=== PATIENT | female | born 1950 | race Caucasian/White ===

== ENCOUNTER 2017-07-06 10:36 | Day surgery (SDC) | payer MEDICARE ==
[2017-07-06] MEDS ORDERED: LIDOCAINE 2% MDV (20MG/ML) 20ML VIAL IV ONE (16:05)
[2017-07-06] MEDS ORDERED: PROPOFOL 10 MG/ML VIAL IV ONE (16:05)
--- NOTE | 2017-07-12 10:20 | Operative Note ---
DATE OF SURGERY: 07/06/2017 REFERRING PROVIDER: Becky Veliz MD PREOPERATIVE DIAGNOSIS: Personal history of polyps. POSTOPERATIVE DIAGNOSES: 1. Angulated sigmoid colon. 2. Ascending colon polyp. OPERATION: COLONOSCOPY with cold snare polypectomy. Preparation Quality: Good to excellent. Estimated Blood Loss: Minimal. Samples Obtained: Ascending colon polyp. Complications: None apparent. PROCEDURE: After informed consent was obtained, the patient was placed in the left lateral decubitus position in the endoscopy suite, sedated and monitored by the Department of Anesthesia. Digital rectal exam was unremarkable. A well-lubricated CF-160 colonoscope was inserted into the rectum and advanced to the sigmoid colon. There was sharp angulation and restricted mobility. Despite attempts to maneuver the adult colonoscope through this region, it was unsuccessful. As a result, the adult colonoscope was removed and a PCF-180 pediatric colonoscope was inserted into the rectum and through the sigmoid colon. There was some difficulty due to the angulation and restriction of the sigmoid colon. Nonetheless, the scope was advanced to the cecum. The preparation quality was good to excellent. The cecum was unremarkable, as was the ileocecal valve and appendiceal orifice. The ascending colon revealed a 4-5 mm sessile polyp removed with a cold snare with minimal bleeding noted. The specimen was retrieved without incident. The remainder of the ascending colon, transverse colon, descending colon, sigmoid colon, and rectum were unremarkable. J-turn views of the anorectum were unremarkable. The endoscope was straightened, the rectal ampulla deflated and the endoscope was removed. RECOMMENDATIONS: Patient should resume her medications and diet. She will likely require repeat exam in 5 years based on tissue histology. As always, thank you for allowing me to participate in the health care of your patients. CC: Becky Veliz MD [facility]
== END 2017-07-06 13:33 | disposition home or self-care (01) ==
LOC: HOP 10:36
PROVIDERS: ATTEND Internal Medicine Gastroenterology
DX: Z12.11 Encounter for screening for malignant neoplasm of colon (principal); D12.2 Benign neoplasm of ascending colon; Z86.010 Personal history of colon polyps; E78.00 Pure hypercholesterolemia, unspecified; E03.9 Hypothyroidism, unspecified; D86.9 Sarcoidosis, unspecified
CPT/HCPCS: 00810; G0105

== ENCOUNTER 2017-09-18 16:06 | Emergency (ER) | payer MEDICARE ==
[2017-09-18] MEDS ORDERED: HYDROMORPHONE HCL 1MG/ML **SYRINGE IVP ONE ×2 (17:04→18:51)
[2017-09-18] MEDS ORDERED: ONDANSETRON HCL IV 4 MG/2 ML VIAL IVP ONE (17:04)
[2017-09-18 17:32] LABS: BASO % 0.2 % (0-6); EOS % 2.1 % (0-6); GRAN % 69.8 % (47-80); HEMATOCRIT 41.2 % (35.0-47.0); HEMOGLOBIN 13.9 gm/dl (11.6-16.0); LYMPH % 17.1 % (16-45); MEAN CELL VOLUME 86.6 fl (81-97); MEAN CORPUSCULAR HEMOGLOBIN 29.2 pg (27-33); MEAN CORPUSCULAR HGB CONC 33.7 g/dl (32-36); MONO % 10.8 % (0-9); PLATELET COUNT 284 K/uL (130-400); RED BLOOD COUNT 4.76 M/uL (3.80-5.40); RED CELL DISTRIBUTION WIDTH 13.3 % (11.5-14.5); WHITE BLOOD COUNT W/O DIFF 6.2 K/uL (4.2-12.2)
[2017-09-18 17:42] LABS: BLOOD UREA NITROGEN 30 mg/dL (8-23); CREATININE 0.8 mg/dL (0.5-0.9); EST GLOMERULAR FILTRATION RATE > 60 mL/min; GLUCOSE,RANDOM 103 mg/dL (74-109)
--- NOTE | 2017-09-18 17:52 | Emergency Department Record ---
History of Present Illness - General Chief Complaint: Fall Injury Stated Complaint: FALL Time Seen by Provider: 09/18/17 17:03 Source: Patient Mode of Arrival: Wheelchair Limitations: No limitations - History of Present Illness Initial Comments: pt fell off a chair and landed twisted on her side. she now has significant pain in her l flank Complaint: Fall Onset/Timin -: Hour(s) Fall From: Chair When Fall Occurred: 1-3 hours [employer] Fall Witnessed: No Place Fall Occurred: Home Loss of Consciousness: None Prolonged Down Time?: No Symptoms Prior to Fall: None Location: Back Severity: Moderate Severity scale (1-10): 8 Quality: Sharp Associated Symptoms: Denies - [place] Coma Scale Eye Response: (4) Open spontaneously Motor Response: (6) Obeys commands Verbal Response: (5) Oriented Hob[place] Total: 15 - Related Data Home Medications Medication Instructions Recorded Confirmed Last Taken B2/Vits A,C,E/Lut/Zeaxanth/Min 1 each PO DAILY 09/18/17 09/18/17 09/18/17 [Icaps Tablet] Budesonide/Formoterol Fumarate 6.9 gm IH Q12H 09/18/17 09/18/17 09/18/17 [Symbicort 80-4.5 Mcg Inhaler] Gabapentin [Neurontin] 100 mg PO BID 09/18/17 09/18/17 09/18/17 Previous Rx's Medication Instructions Recorded Hydrocodone/Acetaminophen [[place] 0.5 - 1 tab PO TID PRN #10 tab 09/18/17 5mg/325mg] Allergies Allergy/AdvReac Type Severity Reaction Status Date / Time No Known Drug Allergies Allergy Verified 09/18/17 16:08 Travel Screening - Travel/Exposure Within Last 30 Days Have you traveled within the last 30 days?: No - Travel/Exposure Within Last Year Have you traveled outside the [place] in the last year?: No - Additonal Travel Details Have you been exposed to anyone with a communicable illness?: No Review of Systems Reviewed: No additional complaints except as noted below Constitutional: Reports: As per HPI. Denies: Chills, Fever, Malaise, Night sweats, Weakness, Weight change Eyes: Reports: As per HPI. Denies: Eye discharge, Eye pain, Photophobia, Vision change ENT: Reports: As per HPI. Denies: Congestion, Dental pain, Ear pain, Epistaxis , Hearing loss, Throat pain Respiratory: Reports: As per HPI. Denies: Cough, Dyspnea, Hemoptysis, Stridor, Wheezes Cardiovascular: Reports: As per HPI. Denies: Arrhythmia, Chest pain, Dyspnea on exertion, Edema, Murmurs, Orthopnea, Palpitations, Paroxysmal nocturnal dyspnea, Rheumatic Fever, Syncope Endocrine: Reports: As per HPI. Denies: Fatigue, Heat or cold intolerance, Polydipsia, Polyuria Gastrointestinal: Reports: As per HPI. Denies: Abdominal pain, Constipation, Diarrhea, Hematemesis, Hematochezia, Melena, Nausea, Vomiting Genitourinary: Reports: As per HPI. Denies: Abnormal menses, Discharge, Dyspareunia, Dysuria, Frequency, Hematuria, Incontinence, Retention, Urgency Musculoskeletal: Reports: As per HPI. Denies: Arthralgia, Back pain, Gout, Joint swelling, Myalgia, Neck pain Skin: Reports: As per HPI. Denies: Bruising, Change in color, Change in hair/ nails, Lesions, Pruritus, Rash Neurological: Reports: As per HPI. Denies: Abnormal gait, Confusion, Headache, Numbness, Paresthesias, Seizure, Tingling, Tremors, Vertigo, Weakness Psychiatric: Reports: As per HPI. Denies: Anxiety, Auditory hallucinations, Depression, Homicidal thoughts, Suicidal thoughts, Visual hallucinations Hematological/Lymphatic: Reports: As per HPI. Denies: Anemia, Blood Clots, Easy bleeding, Easy bruising, Swollen glands Past Medical History - SOCIAL HISTORY Smoking Status: Never smoker Alcohol Use: None Drug Use: None - RESPIRATORY Hx Respiratory Disorders: Yes Comment:: sarcoidosis - CARDIOVASCULAR Hx Cardio Disorders: Yes Hx Hypertension: Yes Comment:: high cholesterol - NEURO Hx Neuro Disorders: Yes Hx of Migraines: Yes - GI Hx GI Disorders: Yes Hx Reflux: Yes Hx of Polyps: Yes - Hx Genitourinary Disorders: No - ENDOCRINE Hx Endocrine Disorders: Yes Hx Thyroid Disease: Yes (hypothyroidism) - MUSCULOSKELETAL Hx Musculoskeletal Disorders: Yes Hx Arthritis: Yes - PSYCH Hx Psych Problems: No - HEMATOLOGY/ONCOLOGY Hx Hematology/Oncology Disorders: No Family Medical History Any Significant Family History?: Yes Hx Cancer: Father *Cancer Comment: colon cancer Physical Exam - General General Appearance: Alert, Oriented x3, Cooperative, Mild distress - Head Head exam: Normal inspection - Eye Eye exam: Normal appearance, PERRL, EOMI Pupils: Normal accommodation - ENT ENT exam: Normal exam, Mucous membranes moist, Normal external ear exam, Normal orophraynx Ear exam: Normal external inspection. negative: External canal tenderness Nasal Exam: Normal inspection. negative: Discharge, Sinus tenderness Mouth exam: Normal external inspection, Tongue normal Teeth exam: Normal inspection. negative: Dental caries Throat exam: Normal inspection. negative: Tonsillar erythema, Tonsillar exudate - Neck Neck exam: Normal inspection, Full ROM. negative: Tenderness - Respiratory Respiratory exam: Normal lung sounds bilaterally. negative: Respiratory distress - Cardiovascular Cardiovascular Exam: Regular rate, Normal rhythm, Normal heart sounds - GI/Abdominal GI/Abdominal exam: Soft, Normal bowel sounds. negative: Tenderness - Rectal Rectal exam: Deferred - exam: Deferred - Extremities Extremities exam: Normal inspection, Full ROM, Normal capillary refill. negative: Tenderness - Back Back exam: Reports: Normal inspection, CVA tenderness (L), Full ROM. Denies: Muscle spasm, Rash noted, Tenderness - Neurological Neurological exam: Alert, Normal gait, Oriented X3, Reflexes normal - Psychiatric Psychiatric exam: Normal affect, Normal mood - Skin Skin exam: Dry, Intact, Normal color, Warm Course Vital Signs 09/18/17 16:09 Temperature 98.1 F Pulse Rate 70 Respiratory 16 Rate Blood Pressure 158/79 Pulse Ox 98 Medical Decision Making - Lab Data Result diagrams: 09/18/17 17:10 09/18/17 17:10 Lab Results 09/18/17 09/18/17 Range/Units 17:10 17:10 WBC 6.2 (4.2-12.2) K/uL RBC 4.76 (3.80-5.40) M/uL Hgb 13.9 (11.6-16.0) gm/dl Hct 41.2 (35.0-47.0) % MCV 86.6 (81-97) fl MCH 29.2 (27-33) pg MCHC 33.7 (32-36) g/dl RDW 13.3 (11.5-14.5) % Plt Count 284 (130-400) K/uL MPV 10.0 (7.4-10.4) fl Gran % 69.8 (47-80) % Lymphocytes % 17.1 (16-45) % Monocytes % 10.8 H (0-9) % Eosinophils % 2.1 (0-6) % Basophils % 0.2 (0-6) % Sodium 141 (136-145) mmol/L Potassium 4.3 (3.4-4.5) mmol/L Chloride 100 (98-107) mmol/L Carbon Dioxide 28.0 (22-29) mmol/L Anion Gap 13.0 (7-16) BUN 30 H (8-23) mg/dL Creatinine 0.8 (0.5-0.9) mg/dL Estimated GFR > 60 mL/min Random Glucose 103 (74-109) mg/dL Calcium 9.5 (8.8-10.2) mg/dL Disposition Disposition: Discharge Clinical Impression: Lung nodule, multiple Lumbar strain Qualifiers: Encounter type: initial encounter Qualified Code(s): S39.012A - Strain of muscle, fascia and tendon of lower back, initial encounter Disposition: Home, Self-Care Condition: (1) Good Instructions: Low Back Strain (ED), Pulmonary Nodules (ED), Thoracic Back Strain (ED) Additional Instructions: follow up with family doctor tomorrow regarding injury and pulmonary and kidney nodules. return sooner if worse. ice to sore areas. motrin with food. Prescriptions: Hydrocodone/Acetaminophen [[place] 5mg/325mg] 0.5 - 1 tab PO TID PRN #10 tab PRN Reason: Pain - General Forms: Patient Portal Access Quality - Quality Measures Quality Measures: N/A - Blood Pressure Screening Does Patient Have Any of the Following: No Blood Pressure Classification: Hypertensive Reading Systolic Measurement: 158 Diastolic Measurement: 79 Screening for High Blood Pressure: < First Hypertensive BP, F/U Documented > [ G8950] First Hypertensive Follow-up Interventions: Follow-up with rescreen GT 1 day and LT 4 weeks.
[2017-09-18 18:50] LABS: URINE APPEARANCE CLEAR; URINE BILIRUBIN NEGATIVE (NEGATIVE); URINE BLOOD NEGATIVE (NEGATIVE); URINE COLOR YELLOW; URINE GLUCOSE (UA) NEGATIVE (NEGATIVE); URINE KETONE NEGATIVE (NEGATIVE); URINE LEUKOCYTE ESTERASE TRACE (NEGATIVE); URINE NITRITE NEGATIVE (NEGATIVE); URINE PROTEIN NEGATIVE (NEGATIVE); URINE UROBILINOGEN 0.2 E.U./dL (0.20 - 1.00)
[2017-09-18 19:12] LABS: URINE EPITHELIAL CELLS 0 - 2 (FEW); URINE WBC 0 - 2 (0-2/hpf)
--- NOTE | 2017-09-19 10:35 | CT SCAN REPORT ---
EXAM: CT OF THE ABDOMEN AND PELVIS WITHOUT CONTRAST HISTORY: ACUTE LEFT FLANK PAIN AFTER FALLING FROM CHAIR AND LANDING ON RIGHT FLANK THREE HOURS AGO. TECHNIQUE: Thin collimation helical CT examination of the abdomen and pelvis was performed without oral or intravenous contrast administration. Lack of oral and IV contrast utilization limits evaluation of the bowel and solid viscera respectively. Comparison: None. FINDINGS: There is air space disease in the lateral segment of the right middle lobe consistent with atelectasis or infiltrate. Multiple small nodules are scattered within the lung bases, right greater than left with the largest nodule in the anterolateral right lower lobe as seen on image 7 of 115 measuring 5.6 mm. These are nonspecific with metastatic disease not excluded. Additionally, there is a confluent somewhat irregularly marginated opacity in the medial right lung base measuring 1.8 x 1.5 cm. It is indeterminate whether this is inflammatory or neoplastic. Calcified lymph nodes are noted in the left infrahilar region consistent with healed granulomatous disease. There is an enlarged lymph node in the low right paraesophageal region measuring 1.4 cm in short axis diameter. Evaluation of the wall of the proximal stomach is limited by lack of distention. No suspicious focal abnormality within the liver, spleen, pancreas, nor adrenal glands. The gallbladder is unremarkable. No biliary ductal dilatation is seen. No nephrolithiasis is demonstrated. There are small low density areas scattered within the left renal sinus. These measure up to 10 mm in diameter each. It is indeterminate whether these are cysts, focal caliectasis, or less likely neoplastic process. The kidneys are otherwise normal in appearance. No convincing evidence of obstructive uropathy. The uterus is surgically absent. No pelvic mass, lymphadenopathy, or free pelvic fluid is seen. No gross bowel dilatation nor bowel wall thickening. No free intraperitoneal air. The appendix is not visualized with confidence. No lytic or blastic bone lesion is demonstrated. There are degenerative changes scattered throughout the visualized spine. IMPRESSION: 1. EXAM LIMITED BY LACK OF ORAL AND IV CONTRAST UTILIZATION. 2. MULTIPLE SMALL NODULES SCATTERED WITHIN THE LUNG BASES, RIGHT GREATER THAN LEFT. A NODULAR PATTERN IS DEMONSTRATED ON PRIOR RADIOGRAPHIC EXAMINATION DATED 07/14/15 AND THESE MAY REPRESENT POST INFLAMMATORY NODULES THOUGH A NEOPLASTIC PROCESS CANNOT BE EXCLUDED. 3. SOMEWHAT MORE CONFLUENT AREA OF OPACITY IN THE MEDIAL RIGHT LUNG BASE MEASURING 1.8 X 1.5 CM. AGAIN, IT IS INDETERMINATE WHETHER THIS IS THE OF ATELECTASIS, INFILTRATE OR NEOPLASM. MILD ATELECTASIS OR INFILTRATE, INCOMPLETELY IMAGED IN THE LATERAL SEGMENT OF THE RIGHT MIDDLE LOBE. 4. 1.4 CM IN SHORT AXIS DIAMETER LYMPH NODE IN THE RIGHT PARAESOPHAGEAL REGION OF INDETERMINATE ETIOLOGY. 5. THERE ARE A FEW SMALL AREAS OF HYPODENSITY IN THE LEFT RENAL SINUS WHICH MAY RELATE TO PERIPELVIC RENAL CYST THOUGH OTHER ETIOLOGIES ARE NOT EXCLUDED AND FURTHER EVALUATION WITH PRE AND POST CONTRAST ADMINISTRATION CT OR MRI EXAMINATION WOULD BE OF BENEFIT. 6. NO CONVINCING EVIDENCE OF AN ACUTE INTRAABDOMINAL NOR INTRAPELVIC PROCESS. JOB NUMBER: [id number] [facility]
== END 2017-09-18 19:35 | disposition home or self-care (01) ==
LOC: ER 16:06
DX: S39.012A Strain of muscle, fascia and tendon of lower back, initial encounter (principal); R91.8 Other nonspecific abnormal finding of lung field; I10 Essential (primary) hypertension; W07.XXXA Fall from chair, initial encounter; Y92.009 Unspecified place in unspecified non-institutional (private) residence as the place of occurrence of the external cause
CPT/HCPCS: 74176; 80048; 81001; 85025; 96374; 96375; 96376; 99284; J1170; J2405

== ENCOUNTER 2017-09-25 12:46 | Emergency (ER) | payer MEDICARE ==
--- NOTE | 2017-09-25 13:04 | Emergency Department Record ---
History of Present Illness - General Chief Complaint: Abdominal Pain Stated Complaint: LLQ AB PAIN Time Seen by Provider: 09/25/17 13:04 Source: Patient Mode of Arrival: Ambulatory Limitations: No limitations - History of Present Illness Initial Comments: The patient is here due to developing LLQ AP yesterday after falling and injuring her back a week ago. She was seen in the ER a week ago after the fall and had a neg workup including and abdominal CT. She has been taking [place] since and now is mildly constipated and has developed the LLQ AP. The pain is an aching pain in the LLQ which only comes on with walking. She also has had some blurred vision since the fall. There has been no CP, SOB, fever, chills, or vomiting. MD Complaint: Abdominal pain Onset/Timin -: Week(s) Location: LLQ Radiation: None Severity: Moderate Quality: Aching Consistency: Intermittent Improves With: Rest Worsens With: Movement Context: Recent injury Associated Symptoms: Denies other symptoms Treatments Prior to Arrival: Prescription analgesics - Related Data Home Medications Medication Instructions Recorded Confirmed Last Taken Hydrocodone/Acetaminophen [Vicodin 1 tab PO Q8H PRN 09/25/17 09/25/17 09/25/17 7.5mg/300mg] Previous Rx's Medication Instructions Recorded Sulfamethoxazole/Trimethoprim 1 tab PO BID #10 tab 09/25/17 [Bactrim Ds] Allergies Allergy/AdvReac Type Severity Reaction Status Date / Time No Known Drug Allergies Allergy Verified 09/25/17 12:49 Travel Screening - Travel/Exposure Within Last 30 Days Have you traveled within the last 30 days?: Yes Location Detail:: [place] - Travel/Exposure Within Last Year Have you traveled outside the [place] in the last year?: Yes Location Detail:: [place] - Additonal Travel Details Have you been exposed to anyone with a communicable illness?: No - Travel Symptoms Symptom Screening: None Review of Systems Constitutional: Denies: Chills, Fever Eyes: Denies: Eye discharge ENT: Denies: Congestion Respiratory: Denies: Cough, Dyspnea Past Medical History - SOCIAL HISTORY Smoking Status: Never smoker Alcohol Use: None Drug Use: None - RESPIRATORY Hx Respiratory Disorders: Yes Comment:: sarcoidosis - CARDIOVASCULAR Hx Cardio Disorders: Yes Hx Hypertension: Yes Comment:: high cholesterol - NEURO Hx Neuro Disorders: Yes Hx of Migraines: Yes - GI Hx GI Disorders: Yes Hx Reflux: Yes Hx of Polyps: Yes - Hx Genitourinary Disorders: No - ENDOCRINE Hx Endocrine Disorders: Yes Hx Thyroid Disease: Yes (hypothyroidism) - MUSCULOSKELETAL Hx Musculoskeletal Disorders: Yes Hx Arthritis: Yes - PSYCH Hx Psych Problems: No - HEMATOLOGY/ONCOLOGY Hx Hematology/Oncology Disorders: No Family Medical History Any Significant Family History?: Yes Hx Cancer: Father *Cancer Comment: colon cancer Physical Exam - General General Appearance: Alert, Oriented x3, Cooperative, No acute distress - Head Head exam: Atraumatic, Normocephalic, Normal inspection - Eye Eye exam: Normal appearance, PERRL - ENT Throat exam: Normal inspection. negative: Tonsillar erythema, Tonsillar exudate - Neck Neck exam: Normal inspection, Full ROM. negative: Tenderness - Respiratory Respiratory exam: Normal lung sounds bilaterally. negative: Respiratory distress - Cardiovascular Cardiovascular Exam: Regular rate, Normal rhythm, Normal heart sounds - GI/Abdominal GI/Abdominal exam: Soft, Normal bowel sounds, Tenderness (There is very mild LLQ tenderness.). negative: Distended, Guarding - Extremities Extremities exam: Normal inspection, Full ROM, Normal capillary refill. negative: Tenderness - Neurological Neurological exam: Alert. negative: Motor sensory deficit Course Vital Signs 09/25/17 12:52 Temperature 98.7 F Pulse Rate 65 Respiratory 16 Rate Blood Pressure 119/69 Pulse Ox 97 - Reevaluation(s) Reevaluation #1: The patient is doing very well at this time. She is resting comfortably with no new complaints. We are waiting on her xray results and I did discuss the mild UTI that she appears to have. 09/25/17 15:31 Reevaluation #2: The patient is doing very well at this time. I did discuss the xray results at length with her and did recommend F/U with her PCP for recheck and to go over the completed exams. She is to decrease her Vicodin usage and use a stool softener and take Bactrim as directed. 09/25/17 15:51 Medical Decision Making - Data Complexity MDM Data: Labs Ordered and/or Reviewed, X-Ray Ordered and/or Reviewed, EKG Ordered and/or Reviewed - Lab Data Result diagrams: 09/25/17 13:28 09/25/17 13:28 - EKG Data -: EKG Interpreted by Me EKG: No Acute Changes, Normal EKG - Radiology Data Radiology results: Report reviewed (Head CT: Neg. CXR: Diffuse nodular interstitial infiltrates unchanged from 07/21. AXR: Mod stool in colon, neg for obstruction or perforation. Abd US: No acute changes.) Disposition Disposition: Discharge Clinical Impression: Cystitis Constipation Qualifiers: Constipation type: unspecified constipation type Qualified Code(s): K59.00 - Constipation, unspecified Disposition: Home, Self-Care Condition: (1) Good Instructions: Constipation (ED), Urinary Tract Infection in Women (ED) Additional Instructions: Please take the Bactrim as directed and decrease your Vicodin usage. Please use a stool softener and please see your PCP next week for recheck and to go over your completed radiology exams. Also please see your PCP to have your low TSH evaluated further and your thyroid medicine adjusted. Prescriptions: Sulfamethoxazole/Trimethoprim [Bactrim Ds] 1 tab PO BID #10 tab Forms: Patient Portal Access Time of Disposition: 15:55 Quality - Quality Measures Quality Measures: N/A - Blood Pressure Screening View Details: Yes Does Patient Have Any of the Following: No Blood Pressure Classification: Pre-Hypertensive BP Reading Systolic Measurement: 120 Diastolic Measurement: 66 Screening for High Blood Pressure: < Pre-Hypertensive BP, F/U Documented > [ G8950] Pre-Hypertensive Follow-up Interventions: Referral to alternative/primary care provider.
[2017-09-25 13:28] LABS: URINE APPEARANCE SL CLOUDY; URINE BILIRUBIN NEGATIVE (NEGATIVE); URINE BLOOD NEGATIVE (NEGATIVE); URINE COLOR YELLOW; URINE GLUCOSE (UA) NEGATIVE (NEGATIVE); URINE KETONE NEGATIVE (NEGATIVE); URINE LEUKOCYTE ESTERASE SMALL (NEGATIVE); URINE NITRITE NEGATIVE (NEGATIVE); URINE PROTEIN NEGATIVE (NEGATIVE); URINE UROBILINOGEN 0.2 E.U./dL (0.20 - 1.00)
[2017-09-25 13:32] LABS: BASO % 0.2 % (0-6); EOS % 2.2 % (0-6); GRAN % 69.5 % (47-80); HEMATOCRIT 40.8 % (35.0-47.0); HEMOGLOBIN 13.8 gm/dl (11.6-16.0); LYMPH % 17.1 % (16-45); MEAN CELL VOLUME 86.4 fl (81-97); MEAN CORPUSCULAR HEMOGLOBIN 29.2 pg (27-33); MEAN CORPUSCULAR HGB CONC 33.8 g/dl (32-36); MEAN PLATELET VOLUME 9.5 fl (7.4-10.4); PLATELET COUNT 283 K/uL (130-400); RED BLOOD COUNT 4.72 M/uL (3.80-5.40); RED CELL DISTRIBUTION WIDTH 13.2 % (11.5-14.5); WHITE BLOOD COUNT W/O DIFF 5.5 K/uL (4.2-12.2)
[2017-09-25 13:42] LABS: BLOOD UREA NITROGEN 33 mg/dL (8-23); CREATININE 0.8 mg/dL (0.5-0.9); EST GLOMERULAR FILTRATION RATE > 60 mL/min
[2017-09-25 13:43] LABS: TOTAL PROTEIN 7.5 g/dL (6.6-8.7)
[2017-09-25 13:45] LABS: URINE BACTERIA NONE SEEN; URINE EPITHELIAL CELLS 0 - 2 (FEW); URINE RBC NONE SEEN (NONE SEEN)
[2017-09-25 13:45] LABS: GLUCOSE,RANDOM 117 mg/dL (74-109)
[2017-09-25 13:48] LABS: ALB/GLOB RATIO 1.2 (1.1-1.8); ALBUMIN 4.1 g/dL (4.0-5.0); ALKALINE PHOSPHATASE 123 U/L (35-104); ALT/SGPT 30 U/L (<33); AST/SGOT 22 U/L (10.0-35.0)
[2017-09-25 13:58] LABS: THYROID STIMULATING HORMONE 10.21 uIU/mL (0.270-4.20)
--- NOTE | 2017-09-26 08:38 | CT SCAN REPORT ---
EXAM: EMERGENCY HEAD CT HISTORY: PATIENT FELL WITH VISUAL CHANGES. TECHNIQUE: Axial CT scan of the head was performed without IV contrast. Comparison: None. Encounter: Initial. FINDINGS: No definite acute intracranial hemorrhage identified. No focal mass effect or midline shift apparent. No definite acute infarct or intracranial mass lesion is seen. No depressed calvarial fracture is evident. IMPRESSION: THE EMERGENCY NONCONTRAST HEAD CT APPEARS ESSENTIALLY NEGATIVE WITH NO DEFINITE ACUTE INTRACRANIAL HEMORRHAGE OR FOCAL MASS EFFECT IDENTIFIED. JOB NUMBER: [id number] [facility]
--- NOTE | 2017-09-26 09:01 | RADIOLOGY REPORT ---
EXAM: ABDOMEN, TWO VIEWS HISTORY: LEFT LOWER QUADRANT ABDOMINAL PAIN. TECHNIQUE: Supine and upright views of the abdomen were obtained. Comparison: None. FINDINGS: Moderate stool throughout the colon. No prominently dilated air filled loops of bowel identified. Very few, if any, air fluid levels are seen in the upright view and no free air identified. Nodular interstitial infiltrate in the lungs incidentally noted. Please see the chest x-ray report for further evaluation of this. Left sided pelvic calcification is presumably a phlebolith. IMPRESSION: MODERATE STOOL THROUGHOUT THE COLON. NO PROMINENTLY DILATED AIR FILLED LOOPS OF BOWEL. NO FREE AIR EVIDENT. NODULAR INTERSTITIAL INFILTRATE IN THE VISUALIZED LOWER LUNGS. JOB NUMBER: [id number] [facility]
--- NOTE | 2017-09-26 09:06 | RADIOLOGY REPORT ---
EXAM: CHEST, TWO VIEWS HISTORY: PULMONARY NODULES, HISTORY OF SARCOIDOSIS. TECHNIQUE: PA and lateral views of the chest were obtained. Comparison: Two view chest 07/14/15. FINDINGS: The heart size is normal. Nodular interstitial infiltrate again seen in the lungs similar to that noted previously. Some relative blurring artifact on the frontal view is probably just technical in nature related to the algorithm utilized with the DR system. Allowing for this, no definite new infiltrate is seen and no pleural effusion or pneumothorax evident. No obvious adenopathy is seen. IMPRESSION: DIFFUSE NODULAR INTERSTITIAL INFILTRATE APPEARING ESSENTIALLY UNCHANGED FROM 06/20. NO DEFINITE ACUTE INFILTRATE SEEN. J[facility]BER: [id number] [facility]
--- NOTE | 2017-09-26 09:13 | ULTRASOUND REPORT ---
EXAM: EMERGENCY COMPLETE ABDOMEN ULTRASOUND HISTORY: ABDOMINAL PAIN LEFT LOWER QUADRANT AFTER FALLING A WEEK AGO. TECHNIQUE: Complete real-time ultrasound examination of the abdomen was obtained. Comparison: No prior abdomen ultrasound with which to compare. FINDINGS: The majority of the pancreas was seen and appears negative with no pancreatic mass or peripancreatic fluid collection evident. The abdominal aorta appears negative with no aneurysm seen. The IVC was negative as seen. Somewhat coarsened echogenicity of the liver may represent some diffuse fatty infiltration of the liver, however, no focal hepatic mass identified and no intrahepatic biliary dilatation seen. The right kidney measures about 10 cm in length with no hydronephrosis evident. No gallstones seen within the gallbladder and no diffuse gallbladder wall thickening is seen. No pericholecystic fluid collection evident. The common duct was seen and was of normal caliber. The spleen appears negative. The left kidney measures about 10.4 cm in length with no hydronephrosis evident. There do appear to be a couple small parapelvic left renal cysts measuring only about 1.2 and 1.4 cm in size. IMPRESSION: 1. A COUPLE SMALL PARAPELVIC LEFT RENAL CYSTS. 2. NO GALLSTONES OR BILIARY DILATATION SEEN. 3. COARSENED ECHOGENICITY OF THE LIVER SUGGESTING SOME DIFFUSE FATTY INFILTRATION OF THE LIVER OR OTHER DIFFUSE HEPATIC PARENCHYMAL DISEASE. JOB NUMBER: [id number] [facility]
== END 2017-09-25 16:03 | disposition home or self-care (01) ==
LOC: ER 12:46
DX: N30.00 Acute cystitis without hematuria (principal); K59.00 Constipation, unspecified; R10.32 Left lower quadrant pain; H53.8 Other visual disturbances; R91.8 Other nonspecific abnormal finding of lung field; I10 Essential (primary) hypertension; Z91.81 History of falling
CPT/HCPCS: 70450; 71020; 74020; 76700; 80053; 81001; 84443; 85025; 93005; 93010; 99284

== ENCOUNTER 2019-05-27 19:25 | Emergency (ER) | payer MEDICARE ==
--- NOTE | 2019-05-27 19:47 | Emergency Department Record ---
History of Present Illness - General Chief Complaint: Headache Migraine Stated Complaint: MIGRAINE Time Seen by Provider: 05/27/19 19:44 Source: Patient, Family Mode of Arrival: Ambulatory Limitations: No limitations - History of Present Illness Initial Comments: 68 yo female presents with a headache that started about two hours ago. The headache is similar to her prior migraine headaches without any new or different symptoms. She reports she has had migraines since being in high school. The headaches are throbbing, mostly frontal. She has nausea with light sensitivity. No noise sensitivity. No vision changes, no confusion, no speech changes. No coordination changes. She does not ever get an aura. No vomiting at this point in time. She took her T3 without complete resolution. She has followed with a neurologist for many years. MD Complaint: Headache, "Migraine" -: Hour(s) (2) Onset Description: Sudden Location: Frontal Severity: Severe Quality: Throbbing, Similar to previous headaches, Other (No new or different symptoms) Consistency: Constant Improves With: Other (dark room) Worsens With: Light, Other (Nausea) Associated Symptoms: Nausea, Photophobia Treatments Prior to Arrival: Other (T3) - Related Data Home Medications Medication Instructions Recorded Confirmed Last Taken Loperamide HCl [Immodium] 2 mg PO Q6H PRN 05/27/19 05/27/19 Unknown Prednisone [Prednisone 10Mg] 10 mg PO DAILY 05/27/19 05/27/19 05/27/19 Previous Rx's Medication Instructions Recorded Sulfamethoxazole/Trimethoprim 1 tab PO BID #10 tab 09/25/17 [Bactrim Ds] Allergies Allergy/AdvReac Type Severity Reaction Status Date / Time No Known Drug Allergies Allergy Verified 09/25/17 12:49 Review of Systems Constitutional: Denies: Chills, Fever, Malaise, Weakness Eyes: Reports: Photophobia. Denies: Eye discharge, Eye pain, Vision change ENT: Denies: Congestion, Throat pain Respiratory: Denies: Cough, Dyspnea, Hemoptysis, Stridor, Wheezes Cardiovascular: Denies: Chest pain, Palpitations, Syncope Endocrine: Denies: Fatigue, Polydipsia, Polyuria Gastrointestinal: Denies: Abdominal pain, Diarrhea Genitourinary: Denies: Dysuria, Urgency Musculoskeletal: Denies: Arthralgia, Back pain, Joint swelling, Myalgia Skin: Denies: Bruising, Change in color, Rash Neurological: Reports: Headache. Denies: Confusion, Numbness Psychiatric: Denies: Anxiety Hematological/Lymphatic: Denies: Easy bleeding, Easy bruising Past Medical History - SOCIAL HISTORY Smoking Status: Never smoker Alcohol Use: None Drug Use: None - RESPIRATORY Hx Respiratory Disorders: Yes Comment:: sarcoidosis - CARDIOVASCULAR Hx Cardio Disorders: Yes Hx Hypertension: Yes Comment:: high cholesterol - NEURO Hx Neuro Disorders: Yes Hx of Migraines: Yes - GI Hx GI Disorders: Yes Hx Reflux: Yes Hx of Polyps: Yes - Hx Genitourinary Disorders: No - ENDOCRINE Hx Endocrine Disorders: Yes Hx Thyroid Disease: Yes (hypothyroidism) - MUSCULOSKELETAL Hx Musculoskeletal Disorders: Yes Hx Arthritis: Yes - PSYCH Hx Psych Problems: No - HEMATOLOGY/ONCOLOGY Hx Hematology/Oncology Disorders: No Family Medical History Any Significant Family History?: Yes Hx Cancer: Father *Cancer Comment: colon cancer Physical Exam - General General Appearance: Alert, Oriented x3, Cooperative, No acute distress Limitations: No limitations - Head Head exam: Atraumatic, Normocephalic, Normal inspection - Eye Eye exam: Normal appearance, PERRL. negative: Conjunctival injection, Scleral icterus - ENT ENT exam: Normal exam, Mucous membranes moist Ear exam: Normal external inspection Nasal Exam: Normal inspection Mouth exam: Normal external inspection Teeth exam: Normal inspection Throat exam: Normal inspection - Neck Neck exam: Normal inspection, Tenderness - Respiratory Respiratory exam: Normal lung sounds bilaterally. negative: Respiratory distress - Cardiovascular Cardiovascular Exam: Regular rate, Normal rhythm, Normal heart sounds - GI/Abdominal GI/Abdominal exam: Soft, Tenderness - Rectal Rectal exam: Deferred - exam: Deferred - Extremities Extremities exam: Normal inspection. negative: Pedal edema, Tenderness - Back Back exam: Reports: Full ROM - Neurological Neurological exam: Alert, CN II-XII intact, Normal gait, Oriented X3, Reflexes normal, Other (Normal FTN, no atxia, walks easily without difficulty or alteration). negative: Altered, Motor sensory deficit - Psychiatric Psychiatric exam: Normal affect, Normal mood. negative: Agitated, Anxious - Skin Skin exam: Dry, Intact, Normal color, Warm Course - Reevaluation(s) Reevaluation #1: 05/27/19 20:59 The patient is doing well and is comfortable with DC. DC vitals were reviewed. We discussed at length reasons to immediately return to the ED as well as close follow up. The patient will call the PCP for close follow up of this ED visit to review this visit 05/27/19 21:04 The patient is pain free at the time of DC Disposition Disposition: Discharge Clinical Impression: Migraine Qualifiers: Migraine type: unspecified Status migrainosus presence: without status migrainosus Intractability: not intractable Qualified Code(s): G43.909 - Migraine, unspecified, not intractable, without status migrainosus Disposition: Home, Self-Care Condition: (1) Good Instructions: Migraine Headache (ED) Additional Instructions: Call your doctor for the next available follow up appointment Review this ER visit and the tests performed with your family doctor Return to the ER for a recheck if worse, any new concerns or questions Forms: Patient Portal Access Time of Disposition: 21:05 Quality - Quality Measures Quality Measures: N/A, Headache (All Ages) - Headache: Neuroimaging Quality Measure: Measure #419: Overuse of Neuroimaging ICD10 Codes Entered: Yes Neurological Exam: Patient had a normal neurological exam. [G9535] Headache: Use of Neuroimaging: < CTA, CT, MRA or MRI was NOT ordered > [G9534] - Blood Pressure Screening Does Patient Have Any of the Following: Active Dx of HTN Blood Pressure Classification: Hypertensive Reading Systolic Measurement: 158 Diastolic Measurement: 69 Screening for High Blood Pressure: Patient Exclusion, Hx of HTN [G9744]
[2019-05-27] MEDS ORDERED: DIPHENHYDRAMINE HCL 50 MG/ML VIAL IVP ONE (19:58)
[2019-05-27] MEDS ORDERED: KETOROLAC 30 MG/ML VIAL IVP ONE (19:59)
[2019-05-27] MEDS ORDERED: 0.9 % SODIUM CHLORIDE 1,000 ML BAG IV ONE (19:59)
[2019-05-27] MEDS ORDERED: METOCLOPRAMIDE HCL 10 MG/2 ML VIAL IVP ONE (19:59)
== END 2019-05-27 21:21 | disposition home or self-care (01) ==
LOC: ER 19:25
DX: G43.909 Migraine, unspecified, not intractable, without status migrainosus (principal); I10 Essential (primary) hypertension; D86.9 Sarcoidosis, unspecified; E78.00 Pure hypercholesterolemia, unspecified
CPT/HCPCS: 96374; 99283; J1200; J1885; J2765; J7030